=== PATIENT | male | born 1950 | race Caucasian/White ===

== ENCOUNTER 2020-05-04 13:57 | Emergency (ER) | payer OTHER, SELFPAY ==
[2020-05-04 14:02] VITALS: BP 187/91; PULSE 72; RESP 20; TEMP 36.8; O2SAT 96; BMI 25.5
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
== END 2020-05-04 16:26 | disposition home or self-care (01) ==
PROVIDERS: Emergency Provider Emergency Medicine; PCP Internal Medicine
DX: S16.1XXA Strain of muscle, fascia and tendon at neck level, initial encounter (principal); V43.52XA Car driver injured in collision with other type car in traffic accident, initial encounter; Y93.89 Activity, other specified; Y92.414 Local residential or business street as the place of occurrence of the external cause; Y99.9 Unspecified external cause status
CPT/HCPCS: 72125; 99283; 99284

== ENCOUNTER 2020-05-12 11:23 | Outpatient (REF) | payer OTHER, SELFPAY ==
--- NOTE | ~2020-05-12 | XR_ITS ---
EXAMINATION: XR HAND, RIGHT CLINICAL INFORMATION: Injury right hand/wrist. COMPARISON: None TECHNIQUE: PA, lateral, and oblique views of the right hand. FINDINGS: There is loss of first carpometacarpal joint space with moderate periarticular spurring. The PIP and DIP joint space is maintained. No bony erosive changes. The soft tissues are normal. XR/XR hand RT min 3V IMPRESSION: Moderate degenerative arthritic changes first carpometacarpal joint with periarticular spurring. No visible acute fracture, dislocation or subluxation seen.
== END 2020-05-12 11:24 | disposition home or self-care (01) ==
LOC: HO.HMGCX 11:23
PROVIDERS: PCP Internal Medicine; Visit Provider Nurse Practitioner Family
DX: S69.91XA Unspecified injury of right wrist, hand and finger(s), initial encounter (principal)
CPT/HCPCS: 73130

== ENCOUNTER 2020-07-11 14:20 | Outpatient (REF) | payer OTHER, SELFPAY ==
--- NOTE | ~2020-07-11 | XR_ITS ---
EXAMINATION: 1. RADIOGRAPHS RIGHT ANKLE 2. RADIOGRAPHS RIGHT FOOT CLINICAL INFORMATION: GOUT COMPARISON: None TECHNIQUE: 3 VIEWS OF THE RIGHT ANKLE AND 3 VIEWS OF THE RIGHT FOOT WERE OBTAINED. FINDINGS: VISUALIZED PORTIONS OF THE DISTAL TIBIA AND FIBULA DEMONSTRATE NO FRACTURE. ANKLE MORTISE IS MAINTAINED. NO FOCAL SOFT TISSUE SWELLING OF THE ANKLE. NO GROSS ANKLE JOINT EFFUSION. BONES OF THE MIDFOOT ARE WELL ALIGNED. NO TARSAL, METATARSAL OR PHALANGEAL FRACTURE. MTP AND IP JOINTS ARE RELATIVELY WELL-MAINTAINED DIFFUSELY. NO FOCAL SOFT TISSUE SWELLING OF THE FOOT. XR/XR foot RT min 3V IMPRESSION: NO FRACTURE OR DISLOCATION OF THE RIGHT ANKLE OR FOOT.
--- NOTE | ~2020-07-11 | XR_ITS ---
EXAMINATION: 1. RADIOGRAPHS RIGHT ANKLE 2. RADIOGRAPHS RIGHT FOOT CLINICAL INFORMATION: GOUT COMPARISON: None TECHNIQUE: 3 VIEWS OF THE RIGHT ANKLE AND 3 VIEWS OF THE RIGHT FOOT WERE OBTAINED. FINDINGS: VISUALIZED PORTIONS OF THE DISTAL TIBIA AND FIBULA DEMONSTRATE NO FRACTURE. ANKLE MORTISE IS MAINTAINED. NO FOCAL SOFT TISSUE SWELLING OF THE ANKLE. NO GROSS ANKLE JOINT EFFUSION. BONES OF THE MIDFOOT ARE WELL ALIGNED. NO TARSAL, METATARSAL OR PHALANGEAL FRACTURE. MTP AND IP JOINTS ARE RELATIVELY WELL-MAINTAINED DIFFUSELY. NO FOCAL SOFT TISSUE SWELLING OF THE FOOT. XR/XR ankle RT min 3V IMPRESSION: NO FRACTURE OR DISLOCATION OF THE RIGHT ANKLE OR FOOT.
[2020-07-11 16:30] LABS: MANUAL DIFF FLAG NO
[2020-07-11 16:33] LABS: Basophils Absolute Auto 0.2 X10*3/uL (0.0-0.2); Basophils Percent Auto 1.3 % (0-2); Eosinophils Absolute Auto 0.6 X10*3/uL (0.0-0.4); Eosinophils Percent Auto 3.1 % (0-4); Hematocrit 55.8 % (42-52); Hemoglobin 17.3 g/dl (14.0-18.0); Imm Gran Abs Auto 0.14 X10*3/uL (0.00-0.03); Imm Gran Pct Auto 0.8 % (0.0-0.4); Lymphocytes Absolute Auto 1.3 X10*3/uL (1.2-4.9); Lymphocytes Percent Auto 7.4 % (20-40); Mean Corpuscular Hemoglobin 26.9 pg (27.0-33.0); Mean Corpuscular Volume 86.9 fL (80-98); Mean Platelet Volume 10.1 fL (9.4-12.4); Monocytes Absolute Auto 0.6 X10*3/uL (0.1-1.2); Monocytes Percent Auto 3.4 % (2-11); Neutrophils Absolute Auto 14.8 X10*3/uL (2.0-8.3); Platelet Count 455 X10*3/uL (160-400); Red Blood Count 6.42 X10*6/uL (4.60-5.80); Red Cell Distribution Width 19.2 % (11.0-16.0); White Blood Count 17.6 X10*3/uL (4.8-10.8)
[2020-07-11 16:54] LABS: Uric Acid 7.8 mg/dL (3.4-7.0)
== END 2020-07-11 14:21 | disposition home or self-care (01) ==
LOC: HO.HMGCLDS 14:20
PROVIDERS: Visit Provider Nurse Practitioner Family
DX: M10.9 Gout, unspecified (principal)
CPT/HCPCS: 36415; 73610; 73630; 84550; 85025

== ENCOUNTER 2020-09-06 11:35 | Outpatient (REF) | payer OTHER, SELFPAY | END 2020-09-06 11:36 | disposition home or self-care (01) | LOC: HO.BBR 11:35 | PROVIDERS: Visit Provider Internal Medicine | DX: D45 Polycythemia vera (principal) | CPT/HCPCS: 85018; 99195 ==

== ENCOUNTER 2020-10-03 10:55 | Outpatient (REF) | payer OTHER, SELFPAY | END 2020-10-03 10:56 | disposition home or self-care (01) | LOC: HO.BBR 10:55 | PROVIDERS: Visit Provider Internal Medicine | DX: D45 Polycythemia vera (principal) | CPT/HCPCS: 36415; 85014; 99195 ==

== ENCOUNTER 2020-11-06 10:53 | Outpatient (REF) | payer OTHER, SELFPAY | END 2020-11-06 10:54 | disposition home or self-care (01) | LOC: HO.BBR 10:53 | PROVIDERS: Visit Provider Internal Medicine | DX: D45 Polycythemia vera (principal) | CPT/HCPCS: 85014; 99195 ==

== ENCOUNTER 2020-12-08 13:35 | Outpatient (REF) | payer OTHER, SELFPAY | END 2020-12-08 13:36 | disposition home or self-care (01) | LOC: HO.BBR 13:35 | PROVIDERS: PCP Internal Medicine; Visit Provider Internal Medicine | DX: D45 Polycythemia vera (principal) | CPT/HCPCS: 85014; 85018; 99195 ==

== ENCOUNTER 2021-01-09 11:30 | Outpatient (REF) | payer OTHER, SELFPAY | END 2021-01-09 11:31 | disposition home or self-care (01) | LOC: HO.BBR 11:30 | PROVIDERS: PCP Internal Medicine; Visit Provider Internal Medicine | DX: D45 Polycythemia vera (principal) | CPT/HCPCS: 36415; 85014; 99195 ==

== ENCOUNTER 2021-02-13 11:43 | Outpatient (REF) | payer OTHER, SELFPAY | END 2021-02-13 11:44 | disposition home or self-care (01) | LOC: HO.BBR 11:43 | PROVIDERS: Visit Provider Internal Medicine | DX: D45 Polycythemia vera (principal) | CPT/HCPCS: 85014 ==

== ENCOUNTER → 2021-04-18 13:32 | Outpatient (BNVA) | payer OTHER, SELFPAY | PROVIDERS: PCP Internal Medicine; Referring Provider Internal Medicine; Visit Provider Surgery | DX: K40.90 Unilateral inguinal hernia, without obstruction or gangrene, not specified as recurrent (principal) | CPT/HCPCS: 99202 ==

== ENCOUNTER 2021-04-20 09:47 | Outpatient (REF) | payer OTHER, SELFPAY ==
--- NOTE | ~2021-04-20 | US_ITS ---
EXAMINATION: US ABDOMEN COMPLETE CLINICAL INFORMATION: Splenomegaly. Polycythemia. COMPARISON: Ultrasound abdomen complete 09/14/2018. TECHNIQUE: Real-time imaging of the abdominal viscera. FINDINGS: PANCREAS: Not well visualized due to bowel gas. ABDOMINAL AORTA: The proximal, mid, and distal segments are normal in caliber. INFERIOR VENA CAVA: Visualized portions are normal. LIVER: The liver is normal in size. The liver contour is normal. Liver echotexture is increased. No focal hepatic lesion. There is no intrahepatic biliary duct dilatation seen. GALLBLADDER: Normal. The gallbladder is physiologically distended without evidence of stones, sludge, polyps, wall thickening or pericholecystic fluid. COMMON BILE DUCT: Normal in caliber measuring 0.6 cm in diameter. RIGHT KIDNEY: There is a 1.2 x 1.1 x 1.2 cm simple cyst in the midpole. No hydronephrosis or renal calculi. The kidney measures 11.6 cm in maximum dimension. LEFT KIDNEY: There is a 4.1 x 2.8 x 4 cm minimally complex cyst with several thin septations in the midpole. No hydronephrosis or renal calculi. The kidney measures 12.0 cm in maximum dimension. SPLEEN: The spleen is slightly enlarged. The spleen measures 14.1 cm in maximum dimension. FREE FLUID: None. US/US abdomen complete IMPRESSION: Slightly enlarged spleen. Bilateral renal cysts. Echogenic liver. Limited visualization of the pancreas.
== END 2021-04-20 09:48 | disposition home or self-care (01) ==
LOC: HO.HMGCX 09:47
PROVIDERS: PCP Internal Medicine; Visit Provider Internal Medicine
DX: D45 Polycythemia vera (principal); R16.1 Splenomegaly, not elsewhere classified
CPT/HCPCS: 76700

== ENCOUNTER 2021-05-16 05:57 | Day surgery (SDC) | payer OTHER, SELFPAY ==
[2021-05-10 10:41] VITALS: BMI 25.2
--- NOTE | 2021-05-15 09:27 | P.CONAN_ITS ---
Documented by User: Dede Hendrickson NP 05/15/21 09:30 HPI - Anesthesia Eval Consult details Narrative: 70yo Right Hernia Repair Inguinal with Mesh PMFSH Active Problems Active Problems: All Active Problems (Updated 05/10/21 @ 10:41 by Trinity Arenas RN) Polycythemia rubra vera (Chronic) Thumb injury (Acute) Gout (Acute) Cellulitis (Acute) Paronychia (Acute) Inguinal hernia (Acute) Physical exam (Acute) Hyperlipidemia (Acute) Reducible right inguinal hernia (Acute) Hypertension (Acute) Past Medical History Medical History Anesthesia complication Arthritis COVID-19 vaccine series completed Elevated cholesterol Gout Hypertension Polycythemia vera Spinal stenosis Family History Family History Father No problems noted. Mother High blood pressure Surgical History Surgical History H/O colonoscopy H/O Spinal surgery History of arthroscopy of left shoulder History of right knee surgery Social History Social History (Updated 04/25/21 @ 14:17 by Suni Geronimo) Housing: House Are you a primary sub acute care nurse to a significant other at home: No Do you presently have visiting nurse or other home services: No Alcohol intake: never Patient Tobacco Use Status: Former Tobacco user Quit Date: 1996 Tobacco use type: Cigarette Cigarette Packs Per Day: 2 e-Cigarette/Vaping Use: Never Used Second Hand Smoke Exposure: No Use of substances other than those prescribed or required for medical reasons: No Have you been hit, kicked, punched, or otherwise hurt by someone within the past year? 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 Meds Allergies Allergy/AdvReac Type Severity Reaction Status Date / Time prednisone [PREDNISONE] AdvReac Intermediate nausea and Verified 05/16/21 06:06 vomiting Home Medications Medication Instructions Recorded Confirmed Last Taken Type yjbpkumdka-zvdgjgszywhjq-stkgxfgp 1 tab PO DAILY PRN 02/01/20 05/10/21 Unknown History 50 mg-325 mg-40 mg tablet (Esgic) hydroxyurea 500 mg capsule 1 cap PO DAILY 04/25/21 05/10/21 Unknown History Exam Exam Date and Time: May 15, [id number] Height,Weight and Vital Signs: Height 5 ft 10 in Weight 79.832 kg Pertinent Lab Results Pertinent Lab Results: Laboratory Tests 03/09/21 04/25/21 Unknown 14:10 WBC 19.8 H Hgb 14.3 Hct 48.5 Plt Count 432 H D Sodium 141 Potassium 4.1 Chloride 104 Carbon Dioxide 26 BUN 15 Creatinine 1.01 Assessment and Plan Assessment Anesthesia Assessment: Chart Reviewed Documented by User: Chuy Matute 05/16/21 07:28 HPI - Anesthesia Eval Consult details Narrative: 70yo Right Hernia Repair Inguinal with Mesh patient accepts increased risk of complications secondory to polycythemia in the thomas operative period . [facility] Past Medical History Medical History Anesthesia complication Arthritis COVID-19 vaccine series completed Elevated cholesterol Gout Hypertension Polycythemia vera Spinal stenosis Family History Family History Father No problems noted. Mother High blood pressure Family history of problems with anesthesia: No Surgical History Surgical History H/O colonoscopy H/O Spinal surgery History of arthroscopy of left shoulder History of right knee surgery History of Problems with Anesthesia: Yes (Delayed emergence ) Social History Social History (Updated 04/25/21 @ 14:17 by Suni Geronimo) Housing: House Are you a primary sub acute care nurse to a significant other at home: No Do you presently have visiting nurse or other home services: No Alcohol intake: never Patient Tobacco Use Status: Former Tobacco user Quit Date: 1996 Tobacco use type: Cigarette Cigarette Packs Per Day: 2 e-Cigarette/Vaping Use: Never Used Second Hand Smoke Exposure: No Use of substances other than those prescribed or required for medical reasons: No Have you been hit, kicked, punched, or otherwise hurt by someone within the past year? 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 Meds Allergies Allergy/AdvReac Type Severity Reaction Status Date / Time prednisone [PREDNISONE] AdvReac Intermediate nausea and Verified 05/16/21 06:06 vomiting Home Medications Medication Instructions Recorded Confirmed Last Taken Type zczlckknkl-qkwifhamgodrm-uiuzwpvk 1 tab PO DAILY PRN 02/01/20 05/10/21 Unknown History 50 mg-325 mg-40 mg tablet (Esgic) hydroxyurea 500 mg capsule 1 cap PO DAILY 04/25/21 05/10/21 Unknown History Exam Airway Mallampati Class: III TM Dist: >3cm Neck ROM: Limited Loose/Missing/Broken Teeth: Yes (Chipped ) Heart: rrr Lungs: bl breath sounds Assessment and Plan Assessment Anesthesia Assessment: Anesthesia Plan Discussed Final Anesthetic Review Family History of Problems with Anesthesia: No History of Problems with Anesthesia: Yes (Delayed emergence ) NPO: Yes ASA Class: III Final Preanesthetic Review: Meds/Allgs Chart Reviewed and Anes Risks/Benef Reviewed Patient Risk: High Procedure Risk: Intermediate Anesthetic Plan Anesthetic Plan: GA Disposition: Standard PACU
[2021-05-16] VITALS (9 sets, daily range): BP systolic 152–166; BP diastolic 69–85; PULSE 51–59; RESP 16–18; TEMP 36.7–36.9; O2SAT 95–99
[2021-05-16] MEDS: Lactated Ringers 1,000 ML 100 ML IVCONT (06:32)
--- NOTE | 2021-05-16 07:12 | MHC.SHP ---
Pre-Procedural Eval Section A Date of Service: 05/16/21 The patient is an INPATIENT: No Changes since office visit: Yes Patient answered all questions; No Cold of Flu in the past 2 weeks, No New Medical Problems and No Changes in Medication The History & Physical has been completed within 30 days and I have reviewed it.: Yes Section B Chief Complaint: Right Inguinal Hernia Allergies: Allergies Allergy/AdvReac Type Severity Reaction Status Date / Time prednisone [PREDNISONE] AdvReac Intermediate nausea and Verified 05/16/21 06:06 vomiting Plan Diagnosis/Plan: Unchanged I have reviewed the history and physical and performed a pertinent physical examination on my patient. No changes have occurred unless specified.
--- NOTE | 2021-05-16 08:35 | P.OP_ITS ---
Operative Note Operative Note Date of Service: 05/16/21 Narrative: Preoperative diagnosis: right inguinal hernia Postoperative diagnosis: same Procedure: repair of right inguinal hernia Surgeon: Santiago Singh MD Content Publisher: Leonor Penny PA-C Anesthesia: general LMA Indications for procedure: 70-year-old male patient with a palpable lump in the right groin which is causing discomfort. Operative findings: Direct right inguinal hernia repaired with a large PerFix mesh plug and patch Specimen: none Estimated blood loss: 5 mL Complications: none Procedure details: patient was brought to the OR and placed in a supine position. After administering general anesthesia the patient's abdomen was prepped with ChloraPrep and draped in a sterile fashion. A surgical time-out was called the consent confirmed. Patient received preoperative antibiotics and Venodyne boots were in place. Local anesthesia consisting of 0.5% Sensorcaine plain was infiltrated over the right inguinal ligament. Incision was then made with a 15 blade over the right inguinal ligament carried down through subcutaneous tissue, past Danette's fascia, and up to the external oblique aponeurosis. Additional local was infiltrated at this time below the aponeurosis. This was then incised with a scalpel wide with the Metzenbaum scissors. The spermatic cord was then bluntly dissected free from the surrounding inguinal canal. This was then retracted using a Elsa drain. A large direct inguinal hernia was then identified. Fibers of the cremasteric muscle were and the cord contents explored. No indirect hernia sac could be identified. Attention was then directed to the space. Direct sac was dissected free from the spermatic cord. Fibers of the internal oblique and transversalis aponeurosis were then incised with electrocautery. The indirect space preperitoneal space was then further dissected using an open Ray-Shira sponge. A large PerFix mesh was then obtained. The plug was then placed in the preperitoneal space and secured to the fascial edges using 0 Polysorb suture. Redundant internal oblique and transversalis fascia was excised and the edges sutured closed using interrupted 0 Polysorb sutures. Patch was then secured to the pubic tubercle, conjoined tendon, shelving edge of the inguinal ligament using 0 Polysorb suture. The mesh was wraped around the spermatic cord at the internal ring and secured to the shelving edge of the inguinal ligament using 0 Polysorb suture. The wounds were then irrigated with saline solution and suctioned dry. External oblique aponeurosis was then closed using a running 2 0 Polysorb suture. Danette's fascia and dermis were reapproximated using interrupted 3-0 Polysorb sutures. Skin was closed using a running subcuticular 4-0 Polysorb suture. Steristrips, 2 x 2 gauze, and Tegaderm were then applied. The patient tolerated the procedure well. Sponge, instrument, and needle counts reported as correct. The patient was transferred to PACU in stable condition.
[2021-05-16] MEDS: oxyCODONE HCl Immed Release 5 MG TABLET PO (09:18)
[2021-05-16] MEDS: Acetaminophen 325 MG TABLET 650 MG PO (09:19)
== END 2021-05-16 10:46 | disposition home or self-care (01) ==
PROVIDERS: PCP Internal Medicine; Visit Provider Surgery
PROC: (CPT 49505; principal; 2021-05-16 07:30)
DX: K40.90 Unilateral inguinal hernia, without obstruction or gangrene, not specified as recurrent (principal); D45 Polycythemia vera; I10 Essential (primary) hypertension; Z79.899 Other long term (current) drug therapy; Z88.8 Allergy status to other drugs, medicaments and biological substances; Z87.891 Personal history of nicotine dependence
CPT/HCPCS: 49505; C1781; J0690; J2250; J2405; J3010

== ENCOUNTER → 2021-05-29 12:41 | Outpatient (BNVA) | payer OTHER, SELFPAY | PROVIDERS: PCP Internal Medicine; Referring Provider Internal Medicine; Visit Provider Surgery | DX: Z48.815 Encounter for surgical aftercare following surgery on the digestive system (principal); Z87.19 Personal history of other diseases of the digestive system | CPT/HCPCS: 99212 ==

== ENCOUNTER → 2021-06-26 13:13 | Outpatient (BNVA) | payer OTHER, SELFPAY | PROVIDERS: PCP Internal Medicine; Referring Provider Internal Medicine; Visit Provider Surgery | DX: Z09 Encounter for follow-up examination after completed treatment for conditions other than malignant neoplasm (principal); Z87.19 Personal history of other diseases of the digestive system | CPT/HCPCS: 99212 ==

== ENCOUNTER 2021-09-21 14:38 | Outpatient (REF) | payer OTHER, SELFPAY ==
--- NOTE | ~2021-09-21 | XR_ITS ---
EXAMINATION: XR THORACIC SPINE CLINICAL INFORMATION: Pain COMPARISON: None TECHNIQUE: 3 views of the thoracic spine were obtained. FINDINGS: Bone alignment is normal. No fracture or dislocation is seen. There is mild degenerative spondylosis of the proximal thoracic spine. Disc spaces are normal. There are postsurgical changes to the lower cervical spine. Paraspinal soft tissues are unremarkable. XR/XR thoracic spine 3V IMPRESSION: Mild degenerative changes of the upper thoracic spine.
== END 2021-09-21 14:39 | disposition home or self-care (01) ==
LOC: HO.HMGCX 14:38
PROVIDERS: PCP Internal Medicine; Visit Provider Physician Assistant
DX: M54.6 Pain in thoracic spine (principal)
CPT/HCPCS: 72072

== ENCOUNTER 2021-10-19 14:00 | Outpatient (RCR) | payer OTHER, SELFPAY ==
--- NOTE | 2021-10-15 15:41 | MHC.PT.EP ---
[facility] [place] [facility] [place] [facility] [place] [facility] [address] Bernard Merino [address] [phone] F: [phone] F: [phone] F: [phone] F: [phone] Physical Therapy Plan of Care Date of Evaluation: Date of Surgery: n/a Diagnosis: strain of muscle and tendon wall of thorax Assessment: Patient is a 71 year old male presenting to PT with complaints of pain in his back. Pt reports onset of pain began 09/18/2021 due to lifting his trailer hitch off his truck. He presents today with impairments in severe pain, ROM, core strength, posture, hip strength. 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 Pt expresses usp goal of reducing pain, and is motivated to work towards this in PT. Clinical presentation today is most consistent with signs and sx associated with low back pain with likely myofascial component and pt will benefit from skilled PT to address the following problems and impairments noted upon evaluation: pain, ROM, core strength, posture, hip strength. These problems limit the patient with the following functional activities: caring for mother, bending, standing, cooking, lifting, ADLs, transfers. The prescribed treatment plan of care is medically necessary. Co-morbidities of spinal stenosis, polycythemia vera (blood cancer), hx cervical spine surgery with 3 fused vertebrae, R patella sugery, L shoulder RC, still taking chemo were identified and taken into considerations of plan of care. Pt was educated on HEP, role of PT, prognosis, POC. Frequency and Duration: The patient will be seen 2 x week x 4 weeks Short Term Goals: Pt will demonstrate ability to move through available range of motion with min to no pain in 2 weeks. Pt will demonstrate hip strength at least 4/5 in 2 weeks for good lumbopelvic stability. Pt will demonstrate ability to perform PPT with good TA recruitment in 2 weeks. Pt will demonstrate improved postural awareness by sitting with biomechanically correct posture without cues throughout session to improve overall postural function in 2 weeks. Snf Goals: Pt will demonstrate improved Nando score by 10% in 4 weeks for improved overall functional mobility. Pt will demonstrate ability to complete all ADLs with min to no pain in 4 weeks for return to PLOF. 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 Treatment Plan: Modalities to reduce pain, spasms and effusion. Manual therapy to restore motion and function. Therapeutic exercise to improve strength and flexibility. Neuromuscular re-education for posture and balance. Therapeutic activities to return to functional activities of daily living. Electronically signed by: Jennifer Curran, PT, DPT, ATC Please sign and return to therapist. Thank you for your referral.
--- NOTE | 2021-10-26 14:01 | MHC.PT.DC ---
[facility] [place] [facility] [place] [facility] [place] [facility] [address] Bernard Merino [address] [facility] [phone] F: [phone] F: [phone] F: [phone] F: [phone] Physical Therapy Discharge Report Diagnosis: strain of muscle and tendon wall of thorax Date of Surgery: n/a Date of Evaluation: 10/15/21 Date of Discharge: 10/26/21 Treatments to Date: 2 Cancellations to Date: 1 No Shows to Date: 0 Discharge Status: Patient Elected to Stop Discharge Summary: Pt self d/c. Called stating he feels better and does not want to continue. Electronically signed by: Jennifer Curran, PT, DPT, ATC Please sign and return to therapist. Thank you for your referral.
== END 2021-10-26 14:02 | disposition home or self-care (01) ==
LOC: HO.PTCHIC 14:00
PROVIDERS: PCP Internal Medicine; Visit Provider Internal Medicine
DX: S29.011A Strain of muscle and tendon of front wall of thorax, initial encounter (principal)
CPT/HCPCS: 97110; 97162

== ENCOUNTER 2022-03-04 15:01 | Outpatient (REF) | payer OTHER, SELFPAY | END 2022-03-04 15:02 | disposition home or self-care (01) | LOC: HO.BBR 15:01 | PROVIDERS: Visit Provider Internal Medicine | DX: D45 Polycythemia vera (principal) | CPT/HCPCS: 85014; 85018; 99195 ==

== ENCOUNTER 2022-04-25 14:44 | Outpatient (REF) | payer OTHER, SELFPAY ==
[2022-04-25 15:02] LABS: MANUAL DIFF FLAG NO
[2022-04-25 15:46] LABS: Basophils Absolute Auto 0.2 X10*3/uL (0.0-0.2); Basophils Percent Auto 1.6 % (0-2); Eosinophils Absolute Auto 0.4 X10*3/uL (0.0-0.4); Eosinophils Percent Auto 2.6 % (0-4); Hematocrit 46.1 % (42.0-52.0); Imm Gran Abs Auto 0.07 X10*3/uL (0.00-0.03); Imm Gran Pct Auto 0.5 % (0.0-0.4); Lymphocytes Absolute Auto 1.5 X10*3/uL (1.2-4.9); Lymphocytes Percent Auto 10.5 % (20-40); Mean Corpuscular HGB Conc 34.7 g/dl (31.0-36.0); Mean Corpuscular Hemoglobin 37.8 pg (27.0-33.0); Monocytes Absolute Auto 0.5 X10*3/uL (0.1-1.2); Monocytes Percent Auto 3.8 % (2-11); Neutrophils Absolute Auto 11.5 x10*3/uL (2.0-8.3); Platelet Count 362 X10*3/uL (160-400); Red Blood Count 4.23 X10*6/uL (4.60-5.80); Red Cell Distribution Width 17.1 % (11.0-16.0); White Blood Count 14.1 X10*3/uL (4.8-10.8)
== END 2022-04-25 14:45 | disposition home or self-care (01) ==
LOC: HO.LAB 14:44
PROVIDERS: PCP Internal Medicine; Visit Provider Internal Medicine
DX: D45 Polycythemia vera (principal)
CPT/HCPCS: 36415; 85025